=== PATIENT | male | born 2005 | race Caucasian/White ===

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

== ENCOUNTER 2023-12-04 15:19 | Outpatient (CLI) | payer OTHER, SELFPAY ==
--- NOTE | ~2023-12-04 | XR_ITS ---
Supine and upright views of the abdomen Clinical history:, Weight loss, diarrhea Findings: Bowel gas pattern is nonspecific. Moderate stool present. No evidence for obstruction or fr ee air. No abnormal mass lesion or calcification is seen. Osseous structures are intact. Impression: Constipation. Reviewed, dictated and finalized at [facility]. ACE UNLOADER Impression: Constipation.
[2023-12-04 19:03] LABS: Alanine Aminotransferase 11 U/L (6-50); Albumin Level 4.6 g/dL (3.5-5.1); Alkaline Phosphatase 76 U/L (38-126); Anion Gap 8 mmol/L (8-16); Aspartate Amino Transferase 31 U/L (17-59); Bilirubin,Total 1.9 mg/dL (0.2-1.3); Blood Urea Nitrogen 16 mg/dL (9-20); CRP < 0.5 mg/dL (<1.0); Calcium 9.8 mg/dL (8.4-10.2); Carbon Dioxide 31 mmol/L (22-30); Chloride 102 mmol/L (98-107); Estimated Glomerular Filt Rate > 60; Glucose 100 mg/dL (65-110); Potassium 3.9 mmol/L (3.4-5.0); Sodium 141 mmol/L (137-145)
[2023-12-04 19:32] LABS: Hemoglobin 14.7 g/dL (14.0-18.0); Mean Corpuscular HGB Conc 33.4 g/dl (32-36); Mean Corpuscular Hemoglobin 28.7 pg (26-34); Mean Corpuscular Volume 85.9 fl (80-100); Platelet Count Result 265 k/mm3 (150-375); Red Blood Count 5.12 M/mm3 (4.6-6.20); Red Cell Distribution Width 12.6 % (11.5-14.5)
[2023-12-04 20:52] LABS: Erythrocyte Sedimentation Rate 5 mm/hr (0-20)
[2023-12-07 00:23] LABS: ANA Cascade Screen Negative (Negative)
[2023-12-08 16:53] LABS: Immunoglobulin A 199 mg/dL (47-310); TTG IGA AB <1.0 U/mL (<15.0)
== END 2023-12-04 15:20 | disposition home or self-care (01) ==
LOC: ANHBWCLAB 15:20
PROVIDERS: PCP Nurse Practitioner Adult Health; Visit Provider Nurse Practitioner Adult Health
DX: R10.9 Unspecified abdominal pain (principal); R63.4 Abnormal weight loss; M25.50 Pain in unspecified joint; K13.79 Other lesions of oral mucosa
CPT/HCPCS: 36415; 74018; 80053; 82784; 84443; 85027; 85652; 86003; 86038; 86140; 86225; 86235; 86364

== ENCOUNTER 2024-01-08 15:07 | Outpatient (CLI) | payer OTHER, SELFPAY ==
[2024-01-08 19:20] LABS: Alanine Aminotransferase 11 U/L (6-50); Albumin Level 4.9 g/dL (3.5-5.1); Alkaline Phosphatase 74 U/L (38-126); Aspartate Amino Transferase 45 U/L (17-59); Bilirubin,Total 1.5 mg/dL (0.2-1.3)
[2024-01-10 19:55] LABS: H pylori, Urea Breath NOT DETECTED (NOT DETECTED)
[2024-01-12 14:40] LABS: Testosterone Free 72.2 pg/mL (35.0-155.0); Testosterone Total 454 ng/dL (250-1100)
== END 2024-01-08 15:08 | disposition home or self-care (01) ==
LOC: ANHBWCLAB 15:08
PROVIDERS: PCP Nurse Practitioner Adult Health; Visit Provider Nurse Practitioner Adult Health
DX: R10.9 Unspecified abdominal pain (principal); R17 Unspecified jaundice; E34.8 Other specified endocrine disorders
CPT/HCPCS: 36415; 80076; 83013; 84402; 84403

== ENCOUNTER 2024-05-16 09:02 | Emergency (ER) | payer OTHER, SELFPAY ==
[2024-05-16 09:08] VITALS: BP 109/70; PULSE 115; RESP 18; TEMP 37.9; O2SAT 100
--- NOTE | 2024-05-16 09:22 | ED.URI ---
HPI - URI/Sore Throat General Chief Complaint: Upper Respiratory Infection Stated Complaint: Sore Throat,Headache,Bodyache Time Seen by Provider: 05/16/24 09:22 Source: patient, RN notes reviewed and old records reviewed Mode of arrival: ambulatory Limitations: no limitations History of Present Illness HPI Narrative: 18-year-old male presents to the [facility] with mom with complaints of sore throat, headache, body aches that started on Sunday. Was evaluated at [facility] urgent care and was tested for everything, reports everything was negative. Continues to have fevers, body aches and a sore throat. Patient's mom requesting retesting things that when he was tested it might ?too early. History of a tonsillectomy Onset (ago): day(s) (4) Treatments prior to arrival: none Related Data Home Medications Medication Instructions Recorded Confirmed No Home Medications 05/16/24 05/16/24 Allergies Allergy/AdvReac Type Severity Reaction Status Date / Time egg Allergy Gastrointestinal Verified 05/16/24 09:38 Upset sesame seed Allergy Gastrointestinal Verified 05/16/24 09:38 Upset shrimp Allergy Gastrointestinal Verified 05/16/24 09:38 Upset Review of Systems Review of Systems: All systems reviewed & are unremarkable except as noted in HPI and below Constitutional: Constitutional: Reports as per HPI, Reports body ache(s), Reports chills, Reports fatigue, Reports fever(s), Reports headache(s) and Reports lethargy Eyes: Eyes: Reports no additional eye complaints ENT: Reports as per HPI and Reports sore throat Cardiovascular: Cardiovascular: Reports no additional cardiovascular complaints, Denies chest pain and Denies dyspnea Respiratory: Respiratory: Reports no additional respiratory complaints, Denies chest congestion, Denies cough and Denies dyspnea Gastrointestinal: Gastrointestinal: Reports no additional gastrointestinal complaints, Denies abdominal pain, Denies nausea and Denies vomiting Musculoskeletal: Musculoskeletal: Reports no additional musculoskeletal complaints Integumentary/Breasts: Skin/Breast: Reports system reviewed and no additional complaints, except as docu Neurologic: Reports system reviewed and no additional complaints, except as documented Psychiatric: Psychiatric: Reports no additional psychiatric complaints Allergic/Immunologic: Allergic/Immunologic: Reports no additional allergic/immunologic complaints PMFSH Past Medical History Medical History Anxiety Headache Surgical History Surgical History History of tonsillectomy Family History Family History Mother Hypertension Cancer Sibling Asthma Grandparent Hypertension Grandparent Hypertension Social History Social History Smoking status: Never smoker Tobacco type: e-cigarettes/vaping Additional smoking assessment comments: 5 years vaping Alcohol intake: never Substance use: never Lack of Transportation: No Lack of Food: Never True Current Housing: I Have Housing Concerned About Future Housing: No Difficulty Paying Gas/Electric Bills: No Difficulty Paying for Meds: No Currently Unemployed: YES Education: High School Diploma/GED Difficulty w/ Childcare or Family Care: No Agree to blood products: Yes Comments At the time of my signature, I reviewed and agree with the nursing past medical, surgical, social, and family history. There is no relevant family history pertinent to the patient complaint. Exam Const: General: cooperative, no acute distress, well developed, alert, ill appearing, uncomfortable and well nourished Nutritional Appearance: well nourished Orientation/consciousness: patient oriented x3 Limitations: no limitations HENMT: Head: normal to inspecti
[2024-05-16 10:00] LABS: EDINFLUASCREEN Negative; EDINFLUBSCREEN Negative; EDMONONEGPOS Negative; EDSTREPNEGPOS1 Presumptive Negative
== END 2024-05-16 10:33 | disposition home or self-care (01) ==
PROVIDERS: Emergency Provider Nurse Practitioner; PCP Nurse Practitioner Adult Health
DX: J02.9 Acute pharyngitis, unspecified (principal); R50.9 Fever, unspecified; F17.290 Nicotine dependence, other tobacco product, uncomplicated
CPT/HCPCS: 36416; 86308; 87081; 87804; 87880; 99213; G0463

== ENCOUNTER 2024-12-28 14:51 | Emergency (ER) | payer OTHER, SELFPAY ==
--- NOTE | ~2024-12-28 | XR_ITS ---
EXAM: XR shoulder LT min 2V DATE: 12/28/2024 15:22 HISTORY: tender L AC joint after adducting arm injury . COMPARISON: None available. FINDINGS: Normal mineralization. No fracture or dislocation. No lytic or blastic lesion. Joint space s are maintained. No erosion or periosteal change. Soft tissues within normal limits. IMPRESSION: No acute osseous finding the left shoulder. Reviewed, dictated and finalized at location K.
--- OUTSIDE RECORDS SUMMARY | 2024-12-28 14:54 | XMS_ITS | Referral Summary ---
Author Organization [address] Address [address] [place] [id number] Care Team Providers Care Saute Chef Name Role Phone Mary Benitez NP Primary Care Provider [phone] Allergies Active Allergy Reactions Criticality Noted Date Comments Egg Yolk Unknown 05/13/2024 Medications FLUoxetine (PROzac) 20 mg capsule Take 1 capsule (20 mg total) by mouth daily 01/08/2024 Active lisdexamfetamin e (VYVANSE) 20 mg capsule Take 1 capsule (20 mg total) by mouth daily 01/09/2024 Active promethazine (PHENERGAN) 25 mg tablet Take 1 tablet (25 mg total) by mouth every 6 (six) hours as needed for nausea or vomiting 30 tablet 05/16/2024 Active ibuprofen (ADVIL,MOTRIN) 600 mg tabletIndicatio ns:Fever,Pain Take 1 tablet (600 mg total) by mouth 3 (three) times a day Take with food. 30 tablet 05/16/2024 Active HYDROcodone-chata taminophen (NORCO) 5-325 mg per tabletIndicatio ns:Pain Take 1 tablet by mouth every 6 (six) hours as needed for pain 10 tablet 05/16/2024 Active Active Problems Problem Noted Date Diagnosed Date ADHD 01/14/2024 Generalized anxiety disorder 08/30/2021 Encounters for administrative purposes 5 Overview (01/11/2017): Sports physical Social History Tobacco Use Types Packs/Day Years Used Date Smoking Tobacco: Never Smokeless Tobacco: Never Tobacco Cessation:Counseling Given: Not Answered Alcohol Use Standard Drinks/Week Comments No 0 (1 standard drink = 0.6 oz pur e alcohol) Personal Safety Answer Date Recorded Getting School Help Needed Not on file 11/01 Sex and Gender Information Value Date Recorded Sex Assigned at Not on file 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 [employer] [facility] H[employer]/PPO Address: [facility] [address] [place] [address] [place] [address] [facility] [employer] [facility] H[employer]/PPO Address: [address] [address] [place] [address] [facility] CHOICE PLUS [facility] H[employer]/PPO Address: [facility] [id number] [place] [address] [facility] CHOICE PLUS [facility] H[employer]/PPO Address: [address] [address] [place] [address] Care Teams Saute Chef Relationship Specialty Start Date End Date Vincent, Mary, [address] [place] [address] PCP - General Nurse Practitioner 12/25/23
--- OUTSIDE RECORDS SUMMARY | 2024-12-28 14:54 | XMS_ITS | Clinical Summary ---
Author Organization [facility] Address [address] [place] [address] Care Team Providers Care Transmission Line Engineer Name Role Phone Nancy Gao MD Primary Care Provider [phone] Source Comments [facility],non-owned Affiliates and Associated Physician Practices is amultiple site organization consisting of ambulatory clinics and hospital sitesin [place], [place], [place] and [place]. This disclosure is being madepursuant to the Care Everywhere program and may not contain all information available regarding this patient. Last updated 18.[facility] Allergies No known active allergies Medications * Be aware that medications may not be up to date on this document. Alwaysverify current medications with the patient. Medication Sig Dispensed Refills Start Date End Date Status ibuprofen (ADVIL; MOTRIN) 100 MG/5ML SUSP suspension Take 16.65 mL by mouth every 6 hours as needed for Pain or Fever. May start using ibuprofen (ADVIL/MOTRIN) 3 days after surgery. 473 mL 1 01/16/2014 Active cloNIDine (CATAPRES) 0.1 MG tablet Take 0.1 mg by mouth once daily Active Active Problems Problem Noted Date Diagnosed Date Allergic conjunctivitis 06/14/2017 Dehydration 01/15/2014 Assessment & Plan (01/17/2014 11:08 AM CDT): Assessment: 8 yo male POD #3 for T/A admitted for moderate dehydration and pain management. Continues to have little to no PO intake due to pain Plan: Decreased fluids to 35ml/hr Morphine x1 to get pain under control, then ibuprofen q6h Encouraged to get up and walk Assessment & Plan (01/16/2014 2:30 PM CDT): Assessment: 8 yo male POD #2 for T/A admitted for moderate dehydration and pain management. Continues to have little to no PO intake due to pain Plan: Decreased fluids to 75ml/hr (maintenance) Tylenol/Oxycodone prn pain, d/c IV morphine Encouraged to get up and walk Will touch base with ENT Assessment & Plan (01/15/2014 4:37 PM CDT): Assessment: 8 yo male POD #2 for T/A admitted for moderate dehydration and pain management. Plan: Admit to Clin Med, Dr. 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 No significant weight loss noted, but history of multiple episodes of oral ulcers in the past. HSV & Strep negative. 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 Improvement since discharge from hospital and no recurrences. Constipation 08/08/2012 Overview (08/13/2012): Patient with stated history of constipation, usually having hard bowel movements every 3-4 days. Last BM was 12 days ago, prior to admission. No diarrhea. +abdominal pain and decreased appetite. No stool since 08/09. Began colace on 08/11 because Kemal will not take liquids or powders. Plan: Most recent BM yesterday Colace daily Resolved Problems Problem Noted Date Diagnosed Date Resolved Date Erosion of perianal region 08/28/2012 1 10/28/2011 Overview (08/28/2012): Onset 08/12. History of recurrent oral erosions. Family History Medical History Relation Name Comments Crohn's Disease Maternal Aunt Kemal's m other's aunt Cancer Maternal Grandfather lung Cancer Maternal Grandmother lung IBS Mother Other Other No FH strabismu s/amblyopia Anesthesia Reaction Neg Hx Relation Name Status Comments Maternal Aunt Maternal Grandfather lung Alive Maternal Grandmother lung Alive Mother Other Social History Tobacco Use Types Packs/Day Years Used Date Smoking Tobacco: Never Smokeless Tobacco: Never Alcohol Use Standard Drinks/Week Comments No 0 (1 standard drink = 0.6 oz pur e alcohol) Sex and Gender Information Value Date Recorded Sex Assigned at Not on file Gender Identity Not on file Sexual Orientation Not on file Last Filed Vital Signs Vital Sign Reading Time Taken Comments Blood Pressure 110/68 01/17/2014 7:55 PM CDT Pulse 96 01/17/2014 7:55 PM CDT Temperature 36.7 C (98 F) 01/17/2014 7:55 PM CDT Respiratory Rate 18 01/17/2014 7:55 PM CDT Oxygen Saturation 100% 01/17/2014 7:55 PM CDT Inhaled Oxygen Concentration - - Weight 32.7 kg (72 lb 1.5 oz) 01/15/2014 9:33 AM CDT Height 141.3 cm (4' 7.63 ) 01/13/2014 12:12 PM C DT Body Mass Index 16.38 01/13/2014 12:12 PM CDT Plan of Treatment Health Maintenance Due Date Last Done Comments HIV SCREENING 2018 HPV VACCINE (1 - Male 3-dose series) 2018 MENINGOCOCCAL (Group B) VACC INE SHARED DECISION-MAKING (1 of 2 - Standard) 2019 HEPATITIS C SCREENING 11/08/2021 DTAP/TDAP/TD VACCINES (1 - Tdap) 2022 HEPATITIS B VACCINE (1 of 3 - 19+ 3-dose series) 2022 COVID-19 VACCINE (1 - 2023-2 5 season) 2024 INFLUENZA VACCINE (#1) 2024 DEPRESSION SCREENING 10/01/2024 ZOSTER VACCINE (1 of 2) 2053 HIB VACCINE Aged Out No longer eligi ble based on patient's age to complete this topic MENINGOCOCCAL GROUPS A/C/Y/W VACCINE Aged Out No longer eligible b ased on patient's age to complete this topic PNEUMOCOCCAL VACCINE Aged Out No long er eligible based on patient's age to complete this topic Care Teams Transmission Line Engineer Relationship Specialty Start Date End Date Nancy Gao MD [address] [place] [address] PCP - General Pediatrics 06/14/17
--- OUTSIDE RECORDS SUMMARY | 2024-12-28 14:54 | XMS_ITS | Clinical Summary ---
Author Organization [address] Address [address] [place] [id number] Care Team Providers Care Rivet Machine Operator Name Role Phone Mary Benitez NP Primary Care Provider Allergies Active Allergy Reactions Criticality Noted Date [...] administrative purposes 5 Overview (01/11/2017): Sports physical Surgical History Surgery Date Site/Laterality Comments TONSILECTOMY, ADENOIDECTOMY, BILATERAL MYRINGOTOMY AND TUBES Medical History Medical History Date Comments No pertinent past medical history Family History Medical History Relation Name Comments Cancer Mother Hypertension Mother Relation Name Status Comments Father Alive Mother Alive Social History Tobacco Use Types Packs/Day Years [...] on file 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 Gender Identity Not on file Sexual Orientation Not on file Obstetrics History Last Filed Vital Signs Vital Sign Reading [...] 05/16/2024 11:27 AM CDT Plan of Treatment Health Maintenance Due Date Last Done Comments Depression Screening 2003 Hepatitis C Screening 2003 HPV Vaccines (2 - Male 3-dose series) 03/17/2019 02/17/2019 Meningococcal B Vaccine (1 of 2 - Standard) 2019 Regular Well Visit/Exam 18-64 2021 Influenza Vaccine (#1) 2024 07/21/2010, 2006 DTaP/Tdap/Td Vaccine (7 - Td or Tdap) 05/09/2026 05/09/2016, 01/08/2009, 02/13/2005, Additional history exists Hepatitis B Screening Completed 05/13/2004 , 03/31/2004, 01/12/2004, Additional history exists Pneumococcal vaccine <65 Completed 005, 05/13/2004, 03/31/2004, Additional history exists Varicella Vaccines Completed 01/08/2009, 11/14/2004 Meningococcal Vaccine Aged Out 05/09/2016 No yadira aguila eligible based on patient's age to complete this topic Insurance [id number] [employer] [id number] [employer] [employer] [facility] CHOICE PLUS [facility] CHO[employer] PLUS Care Teams Rivet Machine Operator Relationship Specialty Start Date End Date Mary Benitez NP [address] [place] [id number] PCP - General Nurse Practitioner 12/25/23
--- OUTSIDE RECORDS SUMMARY | 2024-12-28 14:54 | XMS_ITS | Data Portability ---
Author Organization [facility] [employer], Main Office Address [address] [place] [address] Assessment No assessment recorded. Plan of Treatment Reminders Order Date Submit Date Provider Last Modified By Organization Details Last Modified Time Details Appointments None recorded. Lab iron + TIBC + ferritin, serum 2022 023 [email or web address] Carlos [facility], [address] [place], [address], 3 08:23:30 Referral None recorded. Procedures None recorded. Surgeries None recorded. Imaging None recorded. Medication Orders valacyclovi r 1 gram tablet 2022 023 [facility][id number], [address], [place], [place], [id number], 3 11:11:43 sertraline 100 mg tablet 2022 023 [facility] #[id number], [address], [place], [place], [id number], 3 11:11:41 Patient TargetsNo targets recorded. Patient InstructionsNo instructions recorded. Reason for Referral None Reported. Results Created Date Observation Date Name Description Value Unit Range Abnormal Flag Note LastModifiedBy Organization Detail LastModifiedTime 08/31/20 21 09/02/2021 H PYLOR I BREAT H TEST H pylori breath test negati ve negati ve Perfo rmed at: CB - [facility] [address] [facility], [place] [address] 4228 Lab Direc tor: Samir riley PhD, Phone : [phone] Not Available [facility] (Lab) [address] [place], [address], 09/02/2021 18:08:38 08/31/20 21 08/31/2021 VITAM IN D 25-HY DROXY [id number] 32.2 NG/mL 30-100 Vitam in D Statu s: Defic ient: <20 ng/mL Insuf ficie nt: 20-29 ng/mL Suffi cient : 30-10 0 ng/mL Not Available [facility] (Lab) [address] [place], [address], 08/31/2021 22:07:29 08/31/20 21 08/31/2021 T4 FREE free T4 1.08 NG/dL 0.78-2 .19 Not Available [facility] (Lab) [address] [place], [address], 08/31/2021 22:02:27 08/31/20 21 08/31/2021 FOLAT E, SERUM /PLAS MA folate 5.85 NG/mL 2.76- Not Available [facility] (Lab) [address] [place], [address], 08/31/2021 20:26:33 08/31/20 21 08/31/2021 VITAM IN B12 (NESSA TAHIRA ) vb12 331 pg/mL 239-93 1 Not Available [facility] (Lab) [address] [place], [address], 08/31/2021 20:26:32 08/31/20 21 08/31/2021 BASIC METAB OLIC PANEL sodium 142 mmol/ L 137-14 5 Not Available [facility] (Lab) [address] [place], [address], 08/31/2021 20:18:37 08/31/20 21 08/31/2021 BASIC METAB OLIC PANEL potassium 4.5 mmol/ L 3.5-5. 1 Not Available [facility] (Lab) [address] [facility] [place], [address], 08/31/2021 20:18:37 08/31/20 21 08/31/2021 BASIC METAB OLIC PANEL chloride 103 mmol/ L 98-107 Not Available [facility] (Lab) [address] [place], [address], 08/31/2021 20:18:37 08/31/20 21 08/31/2021 BASIC METAB OLIC PANEL carbon dioxide 29 mmol/ L 22-30 Not Available [facility] (Lab) [address] [place], [address], 08/31/2021 20:18:37 08/31/20 21 08/31/2021 BASIC METAB OLIC PANEL agap 14.5 mmol/ L 14-22 Not Available [facility] (Lab) [address] [place], [address], 08/31/2021 20:18:37 08/31/20 21 08/31/2021 BASIC METAB OLIC PANEL glucose 90 mg/dL 70-99 Not Available [facility] (Lab) [address] [place], [address], 08/31/2021 20:18:37 08/31/20 21 08/31/2021 BASIC METAB OLIC PANEL BUN 11 mg/dL 5-18 Not Available [facility] (Lab) [address] [place], [address], 08/31/2021 20:18:37 08/31/20 21 08/31/2021 BASIC METAB OLIC PANEL creatinine 0.85 mg/dL 0.30-1 .00 Not Available [facility] (Lab) [address] [place], [address], 08/31/2021 20:18:37 08/31/20 21 08/31/2021 BASIC METAB OLIC PANEL calcium 9.8 mg/dL 8.4-10 .2 Not Available [facility] (Lab) [address] [place], [address], 08/31/2021 20:18:37 08/31/20 21 08/31/2021 WAYNE TIN ferritin 55 NG/mL 17.9-4 64 Not Available [facility] (Lab) [address] [place], [address], 08/31/2021 19:46:19 08/31/20 21 08/31/2021 TSH thyroid-stim ulating hormone 1.740 uIU/m L 0.465- 4.680 Not Available [facility] (Lab) [address] [place], [address], 08/31/2021 19:46:08 08/31/20 21 08/31/2021 IRON/ TIBC PANEL total iron binding capacity 335 mcg/d L 265-47 5 Not Available [facility] (Lab) [address] [place], [address], 08/31/2021 19:27:07 08/31/20 21 08/31/2021 IRON/ TIBC PANEL % transferrin saturation 46 % 20-55 Not Available [facility] (Lab) [address] [place], [address], 08/31/2021 19:27:07 08/31/20 21 08/31/2021 IRON/ TIBC PANEL unsaturated iron bind capacity 181 mcg/d L 126-38 2 Not Available [facility] (Lab) [address] [place], [address], 08/31/2021 19:27:07 08/31/20 21 08/31/2021 IRON/ TIBC PANEL iron 154 mcg/d L 50-120 high Not Available [facility] (Lab) [address] [place], [address], 08/31/2021 19:27:07 08/31/20 21 08/31/2021 CBC/C OMPLE TE BLD COUNT W/DIF F white blood cells 6.7 x10'3 /uL 4.2-10 .8 Not Available [facility] (Lab) [address] [place], [address], 08/31/2021 19:17:04 08/31/20 21 08/31/2021 CBC/C OMPLE TE BLD COUNT W/DIF F red blood cells 5.44 x10'6 /uL 4.10-5 .80 Not Available [facility] (Lab) [address] [place], [address], 08/31/2021 19:17:04 08/31/20 21 08/31/2021 CBC/C OMPLE TE BLD COUNT W/DIF F hemoglobin 16.0 g/dL 13.2-1 7.0 Not Available [facility] (Lab) [address] [place], [address], 08/31/2021 19:17:04 08/31/20 21 08/31/2021 CBC/C OMPLE TE BLD COUNT W/DIF F hematocrit 48.9 % 39.3-5 0.0 Not Available [facility] (Lab) [address] [place], [address], 08/31/2021 19:17:04 08/31/20 21 08/31/2021 CBC/C OMPLE TE BLD COUNT W/DIF F mean red cell volume 89.9 fL 80.0-9 7.0 Not Available [facility] (Lab) [address] [place], [address], 08/31/2021 19:17:04 08/31/2008/31/2021 CBC/C OMPLE TE BLD COUNT W/DIF F mean red cell hemoglobin 29.4 pg 27.0-3 3.0 Not Available [facility] (Lab) [address] [place], [address], 08/31/2021 19:17:04 08/31/20 21 08/31/2021 CBC/C OMPLE TE BLD COUNT W/DIF F mean RBC HGB concentratio n 32.7 g/dL 31.0-3 6.0 Not Available [facility] (Lab) [address] [place], [address], 08/31/2021 19:17:04 08/31/20 21 08/31/2021 CBC/C OMPLE TE BLD COUNT W/DIF F red cell distribution width 12.6 % 11.8-1 5.5 Not Available [facility] (Lab) [address] [place], [address], 08/31/2021 19:17:04 08/31/20 21 08/31/2021 CBC/C OMPLE TE BLD COUNT W/DIF F platelets 282 x10'3 /uL 150-40 0 Not Available [facility] (Lab) [address] [place], [address], 08/31/2021 19:17:04 08/31/20 21 08/31/2021 CBC/C OMPLE TE BLD COUNT W/DIF F mean platelet volume 12.2 fL 9.0-12 .4 Not Available [facility] (Lab) [address] [place], [address], 08/31/2021 19:17:04 08/31/20 21 08/31/2021 CBC/C OMPLE TE BLD COUNT W/DIF F neutrophils 48.4 % 39.0-7 2.0 Not Available [facility] (Lab) [address] [place], [address], 08/31/2021 19:17:04 08/31/20 21 08/31/2021 CBC/C OMPLE TE BLD COUNT W/DIF F lymphocytes 39.9 % 16.0-4 7.0 Not Available [facility] (Lab) [address] [place], [address], 08/31/2021 19:17:04 08/31/20 21 08/31/2021 CBC/C OMPLE TE BLD COUNT W/DIF F monocytes 9.4 % 5.0-12 .0 Not Available [facility] (Lab) [address] [place], [address], 08/31/2021 19:17:04 08/31/20 21 08/31/2021 CBC/C OMPLE TE BLD COUNT W/DIF F eosinophils 1.6 % 1.0-7. 0 Not Available [facility] (Lab) [address] [place], [address], 08/31/2021 19:17:04 08/31/20 21 08/31/2021 CBC/C OMPLE TE BLD COUNT W/DIF F basophils 0.6 % 0.0-2. 0 Not Available [facility] (Lab) [address] [place], [address], 08/31/2021 19:17:04 08/31/20 21 08/31/2021 CBC/C OMPLE TE BLD COUNT W/DIF F immature granulocytes 0.1 % 0.00-0 .50 Not Available [facility] (Lab) [address] [place], [address], 08/31/2021 19:17:04 08/31/20 21 08/31/2021 CBC/C OMPLE TE BLD COUNT W/DIF F neutrophils, absolute count 3.25 x10'3 /uL 1.5-8. 0 Not Available [facility] (Lab) [address] [place], [address], 08/31/2021 19:17:04 08/31/20 21 08/31/2021 CBC/C OMPLE TE BLD COUNT W/DIF F lymphocytes, absolute count 2.68 x10'3 /uL 1.07-3 .43 Not Available [facility] (Lab) [address] [place], [address], 08/31/2021 19:17:04 08/31/20 21 08/31/2021 CBC/C OMPLE TE BLD COUNT W/DIF F monocytes, absolute count 0.63 x10'3 /uL 0.29-0 .99 Not Available [facility] (Lab) [address] [place], [address], 08/31/2021 19:17:04 08/31/20 21 08/31/2021 CBC/C OMPLE TE BLD COUNT W/DIF F eosinophils, absolute count 0.11 x10'3 /uL 0.02-0 .53 Not Available [facility] (Lab) [address] [place], [address], 08/31/2021 19:17:04 08/31/20 21 08/31/2021 CBC/C OMPLE TE BLD COUNT W/DIF F basophils, absolute count 0.04 x10'3 /uL 0.01-0 .08 Not Available [facility] (Lab) [address] [place], [address], 08/31/2021 19:17:04 08/31/20 21 08/31/2021 CBC/C OMPLE TE BLD COUNT W/DIF F immature granulocytes ,absolute 0.01 x10'3 /uL 0.00-0 .05 Not Available [facility] (Lab) [address] [place], [address], 08/31/2021 19:17:04 08/31/20 21 08/31/2021 CBC/C OMPLE TE BLD COUNT W/DIF F nucleated red blood cells 0.0 % -0 Not Available [facility] (Lab) [address] [place], [address], 08/31/2021 19:17:04 08/31/20 21 08/31/2021 CBC/C OMPLE TE BLD COUNT W/DIF F NRBC# 0.00 x10'3 /uL Not Available [facility] (Lab) [address], [place], [address], 08/31/2021 19:17:04 Result Notes None recorded. Problems Name Problem SNOMED Code Status Onset Date Resolution Date Notes Provider Name and Address Organization Details Recorded Time Serum iron above reference range 473259059 Active 2020 Not Available [facility] 3 23:57:16 Generalize d anxiety disorder 60176379 Active 2020 Not Available [facility] 3 23:57:16 Gastroesop hageal reflux disease 765740548 Active 2020 Not Available [facility] 3 23:57:16 History of SARS-CoV-2 4705495740227 87649 Active 2021 Not Available [facility] 3 23:57:16 Serum vitamin B12 borderline low 848987974 Active 2021 Not Available [facility] 3 23:57:16 Mixed anxiety and depressive disorder 695570183 Active 2022 Froylan Shah MD [address], [address] , [employer] [facility] [employer] 3 11:05:59 Herpes labialis 4606134 Active 2022 Froylan Shah MD [address] [address], [place], [address] , [employer] [facility] [employer] 3 11:08:08 Problem Notes None recorded. Procedures Surgical History Date Name Laterality Status Provider Name and Address Organization Details Recorded Time Tonsillectomy completed Not Available [facility] 11/29/2022 23:56:54 Imaging Results None recorded. Procedure Notes None recorded. Medical Equipment None Reported. Medications Name Sig Start Date Stop Date Status Note LastModified by Organization Details LastModified Time valacyclovi r 1 gram tablet TAKE 2 TABLETS BY MOUTH EVERY 12 HOURS FOR 1 DAY active Not Available Not Available No t Available sertraline 100 mg tablet Take 1 tablet every day by oral route. active Not Available Not Available No t Available doxycycline monohydrate 100 mg capsule TAKE 1 CAPSULE BY MOUTH TWICE DAILY FOR 7 DAYS 01/03 completed Not Available Not Available Not Available omeprazole 20 mg capsule,del ayed release Take 1 capsule every day by oral route for 30 days. 01/03 completed Not Available Not Available Not Available cyanocobala min (vit B-12) 1,[address] 1 tablet every day by sublingua l route for 30 days. 01/03 completed Not Available Not Available Not Available sertraline 50 mg tablet TAKE 1 TABLET BY MOUTH EVERY DAY active Not Available Not Available No t Available OraMagicRx mouthwash Use as directed 01/03 completed Not Available Not Available Not Available Vyvanse 10 mg capsule TAKE 1 CAPSULE BY MOUTH EVERY DAY 01/03 completed Not Available Not Available Not Available Vitals Date Recorded Body mass index (BMI) Body height Oxygen saturation Oxygen saturation in Arterial blood by Pulse oximetry Heart rate Body temperature Body weight Systolic blood pressure Diastolic blood pressure Provider Name and Address Organization Details Last Updated DateTime 1 18.5 kg/m2 177.8 cm 98 % 98 % 62 /min 96.9 [degF] 75851.4 2 g 112 mm[Hg] 74 mm[Hg] Not Available [facility] 3 23:57:12 Date Recorded Oxygen saturation Oxygen saturation in Arterial blood by Pulse oximetry Heart rate Body temperature Body weight Systolic blood pressure Diastolic blood pressure Provider Name and Address Organization Details Last Updated DateTime 2 98 % 98 % 80 /min 98.1 [degF] 03540.0 8 g 188 mm[Hg] 64 mm[Hg] Not Available [facility] 3 23:57:12 Date Recorded Body height Body mass index (BMI) Percentile per age and sex Body mass index (BMI) Body weight Body temperature Heart rate Oxygen saturation Oxygen saturation in Arterial blood by Pulse oximetry Systolic blood pressure Diastolic blood pressure Provider Name and Address Organization Details Last Updated DateTime 3 177.8 cm 2 % 18.2 kg/m2 20233.2 3 g 97.2 [degF] 64 /min 98 % 98 % 102 mm[Hg] 80 mm[Hg] [facility] [place] [facility] [place] [employer] [facility] 3 10:39:44 Social History Question Answer Notes LastModified by Organizat ion Details LastModified Time Tobacco Smoking Status Never Smoker Not Available [facility] 11/29/2022 23:56:51 What Is Your Level Of Alcohol Consumption? None [id number] Information not available 11/29/2022 What Is Your Level Of Caffeine Consumption? Moderate [id number] Information not available 11/29/2022 In The 14 Days Before Symptom Onset, Have You Had Close Contact With A Laboratory-confir med COVID-19 While That Case Was Ill? No [id number] Information not available 11/29/2022 In The 14 Days Before Symptom Onset, Have You Had Close Contact With A Person Who Is Under Investigation For COVID-19 While That Person Was Ill? No [id number] Information not available 11/29/2022 What Type Of Diet Are You Following? REGULAR [id number] Information not available 11/29/2022 Do You Or Have You Ever Used E-cigarettes Or Vape? Current User Of Electronic Cigarettes [id number] Information not available 11/29/2022 Do You Use Any Illicit Or Recreational Drugs? No [id number] Information not available 11/29/2022 Have You Recently Traveled Abroad? No [id number] Information not available 11/29/2022 Do You Or Have You Ever Used Any Other Forms Of Tobacco Or Nicotine? Yes [id number] Information not available 11/29/2022 Sex: Male Functional Status Question Answer Note LastModified by [employer] Details LastModified Time What is your exercise level? Moderate [id number] Information not available 11/29/2022 Mental Status None recorded. Family History Relationship Description Onset Age of this Age Resolved Age Notes LastModified by Organization Details LastModified Time Father No current problems or disability [id number] Not available 11/29/2022 23:56:55 Mother No current problems or disability [id number] Not available 11/29/2022 23:56:55 Medical History No medical history recorded. Past Encounters Encounter ID Performer Location Encounter Start Date Encounter Closed Date Diagnosis/Indication Diagnosis SNOMED-CT Code Diagnosis ICD10 Code Diagnosis Note [id number] [facility] John montes [address] [facility] [place] [address] 08/31/2021 00:00:00 08/31/2021 13:48:32 [id number] [facility] Iván jyoti [address] [place] [address] 10/03/2021 00:00:00 10/03/2021 16:28:16 [id number] Froylan Shah MD [facility] Iván jyoti [address] [place] [address] 01/03/2023 10:29:06 01/03/2023 11:14:33 Mixed anxiety and depressive disorder 482265407 F41.8 Will increase the sertraline to 100 mg daily RTC in 6 weeks. Serum iron above reference range 474096855 R79.0 Herpes labialis 7317495 B00.1 Health Concerns Section Related Observation LastModified by Organization Detai ls LastModified Time None Recorded Concern Status LastModified by Organization Details LastModified Time None Recorded Advance Directives Directive None Recorded Payers Encounter Date Sequence Insurance Name Policy Number Policy Pro Covered Member ID Pro Member ID Guarantor Name 01/03/2023 1 [facility] [id number] Randee Major [id number] Kemal Fam Notes Date Note Type Note Provider Name and Address Organization Details Recorded Time 01/03/2023 text/html Here to [facility] care He struggles with anxiety and depression. He is on sertraline and may need to go up. His iron levels were high. Needs BW Getting constant mouth sores. Would like treatment for this. Froylan Shha MD [facility] [address] [facility] [address], [place], [address], [facility] 01/03/2023 19:12:15
[2024-12-28 14:56] VITALS: BP 124/81; PULSE 73; RESP 20; TEMP 36.6; O2SAT 99
--- NOTE | 2024-12-28 15:06 | ED_ITS ---
HPI - Extremity Injury (Upper) General Chief Complaint: Extremity Injury, Upper Stated Complaint: Left Shoulder Injury Time Seen by Provider: 12/28/24 15:06 Source: patient Mode of arrival: ambulatory Limitations: no limitations History of Present Illness HPI narrative: 19 yo M presents with pain to L shoulder. Last night was drinking with friends and wrestling. Sheldon pop and pain to L shoulder. Pt has full ROM, distal NV intact. Reports pain with movement. All systems reviewed and negative except as noted above. Related Data Home Medications ?Medication ?Instructions ?Recorded ?Confirmed ?Last Taken ?Type No Home Medications 05/16/24 12/28/24 Unknown History Allergies Allergy/AdvReac Type Severity Reaction Status Date / Time egg Allergy Gastrointestinal Verified 12/28/24 15:05 Upset sesame seed Allergy Gastrointestinal Verified 12/28/24 15:05 Upset shrimp Allergy Gastrointestinal Verified 12/28/24 15:05 Upset Review of Systems Review of Systems: CONSTITUTIONAL: Denies fever, chills, or sweats. EYES: Denies visual changes, redness, or discharge. ENT: Denies rhinorrhea, congestion, sore throat, or otalgia. CARDIOVASCULAR: Denies chest pain, palpitations, or edema. RESPIRATORY: Denies cough or dyspnea. GASTROINTESTINAL: Denies abdominal pain, nausea, vomiting, or diarrhea. GENITOURINARY: Denies dysuria or hematuria. SKIN: Denies rash or itching. MUSCULOSKELETAL: Denies back pain or myalgia. reports pain to L shoulder NEUROLOGIC: Denies headache, numbness, or weakness. PSYCHIATRIC: Denies anxiety or depression. All other systems reviewed are negative, except as documented in HPI. [facility] Past Medical History Medical History Anxiety Headache Surgical History Surgical History History of tonsillectomy Family History Family History Mother Hypertension Cancer Sibling Asthma Grandparent Hypertension Grandparent Hypertension Social History Social History Smoking status: Never smoker Tobacco type: e-cigarettes/vaping Additional smoking assessment comments: 5 years vaping Alcohol intake: never Substance use: never Lack of Transportation: No Lack of Food: Never True Current Housing: I Have Housing Concerned About Future Housing: No Difficulty Paying Gas/Electric Bills: No Difficulty Paying for Meds: No Currently Unemployed: YES Education: High School Diploma/GED Difficulty w/ Childcare or Family Care: No Agree to blood products: Yes Comments At time of signature, agree with nursing past medical, surgical, social and family history. There is no relevant family history pertinent to the presenting complaint. Exam Narrative: GENERAL: This is a well-nourished, well-developed patient, in no apparent distress. HEAD: normocephalic, atraumatic. EYES: PERRL. Sclera clear/white. Vision is grossly intact. EARS: External ears normal NOSE: External nose normal NECK: Neck supple, non-tender without lymphadenopathy, masses or thyromegaly. CARDIOVASCULAR: Regular rate and rhythm without murmurs, gallops, or rubs. RESPIRATORY: Clear to auscultation. Breath sounds equal bilaterally. No wheezes, rales, or rhonchi. SKIN: warm, Dry, intact with no suspicious lesions or rash, good texture and t urgor. NEURO: awake, alert, and oriented to person, place and time. There were no obvious focal neurologic abnormalities. EXTREMITIES: tenderness to L AC joint on palpation. no deformity or swelling noted. normal ROM. CMS intact. neg drop arm test. Course Course Level of Care: Express Care Visit Vital Signs Vital signs: Vital Signs Temperature 36.6 C 12/28/24 14:56 Pulse Rate 73 12/28/24 14:56 Respiratory Rate 20 12/28/24 14:56 Blood Pressure 124/81 12/28/24 14:56 Pulse Oximetry 99 12/28/24 14:56 Oxygen Delivery Room Air 12/28/24 14:56 Temperature 36.6 C 12/28/24 14:56 Pulse Rate 73 12/28/24 14:56 Respiratory Rate 20 12/28/24 14:56 Blood Pressure 124/81 12/28/24 14:56 Pulse Oximetry 99 12/28/24 14:56 Oxygen Delivery Room Air 12/28/24 14:56 Reviewed MDM - Extremity Injury (Upper) MDM Narrative Medical decision making narrative: x-ray of left shoulder is negative for fracture. Discussed results with patient. Recommend ibuprofen, Tylenol, rest. Please be advised this is a medical document. It is intended for [id number]-sn-osbl communication. It is written in medical language and may contain unfamiliar abbreviations or verbiage. Medical documents are intended to carry relevant information, facts as evident, and the clinical opinion of the practitioner at the time of the encounter. This report may have been done utilizing a voice recognition system. Attempts have been made to correct errors. However, there may be uncorrected grammatical, spelling, and recognition errors present. The file time of this note does not necessarily represent the time of service. Imaging Data My impression: agree with radiologist Radiologist's impression: EXAM: XR shoulder LT min 2V DATE: 12/28/2024 15:22 HISTORY: tender L AC joint after adducting arm injury . COMPARISON: None available. FINDINGS: Normal mineralization. No fracture or dislocation. No lytic or blastic lesion. Joint spaces are maintained. No erosion or periosteal change. Soft tissues within normal limits. IMPRESSION: No acute osseous finding the left shoulder. Discharge Plan Discharge Clinical Impression: Sprain of left shoulder Qualifiers: Encounter type: initial encounter Shoulder sprain type: unspecified sprain Qualified Code(s): S43.402A - Unspecified sprain of left shoulder joint, initial encounter Patient Disposition: Home, Self-Care Condition: Stable Instructions: Shoulder Sprain (ED) Additional Instructions: The x-ray of your left shoulder was negative for fracture. Take ibuprofen or Tylenol every 6-8 hours as needed for pain. Apply ice as needed for pain. Avoid activities that increase pain To left shoulder. See your primary care provider if pain not improving in the next 3-4 weeks. Patient Language: Omani Prescriptions: No Action No Home Medications Follow-up/Referrals: Mary Benitez APRN [Primary Care Provider] - Stand Alone Forms: Work/School Release IP Time of Disposition: 16:19
== END 2024-12-28 16:22 | disposition home or self-care (01) ==
PROVIDERS: Emergency Provider Nurse Practitioner Family; PCP Nurse Practitioner Adult Health
DX: S43.402A Unspecified sprain of left shoulder joint, initial encounter (principal); X58.XXXA Exposure to other specified factors, initial encounter; Y93.83 Activity, rough housing and horseplay; F17.290 Nicotine dependence, other tobacco product, uncomplicated
CPT/HCPCS: 73030; 99213; G0463